=== PATIENT | male | born 1985 | race Caucasian/White ===

== ENCOUNTER 2017-06-01 07:26 | Emergency (ER) | payer MEDICAID ==
[~2017-06-01] VITALS: Ht 185.4 cm; Wt 75.7 kg
[2017-06-01 07:32] VITALS: BP 116/86
[2017-06-01] MEDS ORDERED: cefTRIAXone SODIUM 250 MG VL IM ONE (08:15)
== END 2017-06-01 08:27 | disposition home or self-care (01) ==
LOC: ER 07:26
DX: A56.01 Chlamydial cystitis and urethritis (principal); N39.0 Urinary tract infection, site not specified; F17.210 Nicotine dependence, cigarettes, uncomplicated; F12.10 Cannabis abuse, uncomplicated; Z91.030 Bee allergy status
CPT/HCPCS: 96372; 99283; J0696